=== PATIENT | male | born 1950 | race Caucasian/White ===

== ENCOUNTER 2019-07-10 12:52 | Inpatient (IN) | payer OTHER, MEDICAID ==
[~2019-07-10] VITALS: Ht 180.3 cm; Wt 76.5 kg
--- NOTE | 2019-07-10 12:57 | NUR ---
PT BIB [facility] AM[facility]ULANCE FROM [facility] WITH C/O LEFT LEG PAIN, PER MEDICS WITNESSED FALL OUT OF SI BED LAST NIGHT -LOC, -HEAD INJURY/TRAUMA, PER MEDICS PT HAS HX ARTHRITIS, DEMENTIA, AND HEMIPLEGIA, PER MEDICS "PT IS ACTING HIS NORMAL" AND HAS A G-TUBE IN PLACE, UPON ARRIVAL PT AAOX2 (NOT ORIENTED TO TIME AND/OR SITUATION) HOWEVER PER MEDICS "THAT IS HIS NORMAL", RESPS E/U, PT BROUGHT IN ON 2L O2 NC, O2 REMOVED AND PT SPO2 94% VIA RA, PT PLACED BACK ON O2 2L NC FOR COMFORT, PT HAS G-TUBE NOTED TO RUQ CLEAN INTACT NO REDNESS NOTED, SKIN INTACT, NO DEFORMITIES AND/OR SWELLING NOTED, PER PT "HURTS MORE AT THE TOP OF MY LEFT LEG" TENDERNESS UPON PALPATION NOTED, PT GOWNED AND PLACED ON FULL CM, NSR, AWAITING MSE
--- NOTE | 2019-07-10 12:58 | NUR ---
RUE DEFICITS NOTED TO HX CVA
--- NOTE | 2019-07-10 13:00 | NUR ---
CLEAN, DRY DRESSING NOTED TO RIGHT FOOT OYSTER SHIPPER
--- NOTE | 2019-07-10 13:15 | NUR ---
DR BAHENA AT BEDSIDE FOR MSE.
[2019-07-10 14:09] LABS: CALCIUM 8.9 mg/dL (8.5-10.1); CARBON DIOXIDE 31.9 mmol/L (21-32); CHLORIDE SERUM 96 mmol/L (98-107); CREATININE SERUM 0.9 mg/dL (0.7-1.3); GFR1 > 60 mL/min; GLUCOSE SERUM 154 mg/dL (74-106); POTASSIUM SERUM 4.8 mmol/L (3.5-5.1); SODIUM SERUM 132 mmol/L (136-145)
[2019-07-10 14:11] LABS: BASOPHIL % 0.3 % (0-2); PLATELET COUNT 372 x10^3mcL (130-400)
[2019-07-10 14:15] LABS: RED CELL DISTRIBUTION WIDTH 14.9 % (11.5-14.5)
--- NOTE | 2019-07-10 14:24 | NUR ---
PT BACK FROM XRAY IN STABLE CONDITION
--- NOTE | 2019-07-10 15:44 | NUR ---
PT ASLEEP BUT AROUSABLE IN POSITION OF COMFORT, RESPS E/U, VSS, NSR ON CM, WILL CONTINUE TO MONITOR
--- NOTE | 2019-07-10 15:49 | NUR ---
CORRECTION, G-TUBE LOCATED IN MID ABD REGION
[2019-07-10] MEDS ORDERED: XARELTO10 M1 GT (15:56)
[2019-07-10] MEDS ORDERED: LIPI10 PO (15:58)
[2019-07-10] MEDS ORDERED: VALPROIC A250 MG/51 GT (15:58)
[2019-07-10] MEDS ORDERED: DULCOLAX STOOL100 MG GT (15:59)
[2019-07-10] MEDS ORDERED: NOR10T PO (16:00)
[2019-07-10] MEDS ORDERED: ACETAMINOP650 MG/20. GT (16:00)
[2019-07-10] MEDS ORDERED: PEPCID20 MG GT (16:01)
[2019-07-10] MEDS ORDERED: C500500 MG GT (16:01)
[2019-07-10] MEDS ORDERED: NOR5 PO (16:01)
[2019-07-10] MEDS ORDERED: NAMENDA10 M2 GT ×2 (16:02→17:35)
[2019-07-10] MEDS ORDERED: POLYETHYLE17 GM/Dos4 (16:02)
[2019-07-10] MEDS ORDERED: ACIDOPHILUS LA1 EAC1 GT (16:03)
[2019-07-10] MEDS ORDERED: STOOL SOFTENER250 M2 GT (16:04)
[2019-07-10] MEDS ORDERED: FENOFIBRATE145 M1 GT (16:05)
[2019-07-10] MEDS ORDERED: ATENOLOL25 MG GT (16:05)
[2019-07-10] MEDS ORDERED: DIGOXIN0.125 M1 GT (16:06)
--- NOTE | 2019-07-10 16:50 | NUR ---
PT REQUESTING PAIN MEDICATION 07/20 PAIN, MD STEWART MADE AWARE
[2019-07-10 17:11] LABS: T3 TOTAL 0.96 ng/mL
[2019-07-10 17:15] LABS: FREE T4 1.12 ng/dL (0.76-1.46); T4(THYROXINE) 8.1 ug/dL (4.7-13.3)
--- NOTE | 2019-07-10 17:23 | NUR ---
PT REQUESTING PAIN MEDICATION 07/20 PAIN, MD STEWART MADE AWARE
[2019-07-10 17:29] LABS: MAGNESIUM 1.9 mg/dL (1.8-2.4); PHOSPHOROUS 2.9 mg/dL (2.5-4.9)
[2019-07-10 17:32] LABS: CHOLESTEROL/HDL RATIO 3.5
--- NOTE | 2019-07-10 17:35 | NUR ---
REPORT GIVEN TO HANS GIANG WHO IS RESUMING CARE OF PT AT THIS TIME
--- NOTE | 2019-07-10 17:36 | NUR ---
CORRECTION, LEFT FOOT
--- NOTE | 2019-07-10 18:21 | NUR ---
PT IS AAOX2 TO PERSON AND PLACE. FOLLOWS SOME COMMANDS. CAN VERBALIZE SOME NEEDS. TELE [address] READ[address] NSR WITH [address] DEPRESSION. PT HAS LARM NON-PITTING EDEMA. LUNG SOUNDS DIMINISHED BILATERALLY. ON 02 N/C AT 2 LPM. PT HAS L FOOT WOUND 3X2CM AND L FOOT WOUND. RECEIVED ORDER FROM DR. PARKER FOR WOUND CARE CONSULT AND WOUND CARE ORDERS. ORDERS NOTED AND CARRIED OUT. IVF RUNNING TO LAC, SITE WNL. ABDOMEN SOFT, NONTENDER WITH GTUBE PLACED. SITE WNL. COVERED WITH GAUZE 4X4. PT DENIES PAIN AT THIS TIME. CALL LIGHT WITHIN REACH. BED IN LOWEST POSTION. BED ALARM ON. FALL PROTOCOL IN PLACE. WILL ENDORSE ALL CARE TO NOC RN.
[2019-07-10 18:22] VITALS: BP 155/58
--- NOTE | 2019-07-10 18:37 | NUR ---
RECEIVED FROM ER, TRANSPORTED VIA [facility]. AWAKE, ALERT, ABLE TO STATE NAME AND . SHOUTED OUT IN PAIN WHEN MOVED, STATED "I HURT ALL OVER" WHEN ASKED WHERE PAIN WAS. BECAME CALM WHEN PAIN FREE WHEN NOT MOVED. RIGHT SIDED HEMIPLEGIA. CONTRACTED RIGHT HAND. LEFT FOOT DROP. FULL AND ACTIVE ROM LEFT UPPER EXTREMITY. SEE ADMISSION SKIN PROBLEM FOR SKIN PROBLEMS. SKIN ALTERATIONS PHOTODOCUMENTED. G TUBE TO LEFT UPPER ABDOMEN. BREATHING EVEN AND UNLABORED ON 2LPM OF O2 VIA NC. LUNG SOUNDS DIMINISHED. HOB ELEVATED 30 DEG. SALINE LOCK TO LEFT AC. NON-PITTING EDEMA TO LEFT ARM. INSTRUCTED ON USE OF CALL LIGHT TO CALL FOR ASSISTANCE, PLACED WITHIN EASY REACH. ENDORSED TO NURSE JORGE.
--- NOTE | 2019-07-10 19:10 | NUR ---
RECEIVED PT LAYING IN BED, NO ACUTE DISTRESS OBSERVED, DENIES PAIN OR DISCOMFORT AT THIS TIME. AA/OX1, TO SELF ONLY, SPEECH GARBLED, ABLE TO MAKE NEEDS KNOWN, HX OF CVA. NSR WITH DEPRESSED ST TO TELE #2, DENIES CP. WEAK PEDAL PULSES, NONPITTING EDEMA TO LUE. BREATHING ON 1LNC, EVEN AND UNLABORED, NO SOB OR DYSPNEA OBSERVED, LUNGS CTA, O2 SAT 96% ABD ROUND AND SOFT WITH ACTIVE BOWEL SOUNDS, PEG TUBE TO LUQ IN PLACE, NO N/V/D. VOIDS URINE, INCONTINENT OF STOOL AND URINE, WILL PROVIDE PERICARE NEEDED. PT IS NONAMBULATORY, TURN AND REPOSITION Q2H, L FOOT DROP, R HAND CONTRACTURE. NONBLANCHABLE REDNESS TO BUTTOCKS, HARRY. TOP OF L FOOT WITH SKIN TEAR AND CIRCULAR OPEN TEAR, DYNAMICIST. DARK DISCOLORATION TO R HIP, DYNAMICIST. IV TO LAC IN PLACE, DRY, PATENT, INTACT, AND INFUSING IVF WELL, NO S&S PHLEBITIS OR INFILTRATION NOTED. COMFORT AND SAFETY MEASURES IN PLACE. BED IN LOWEST POSITION WITH SIDE RAILS UPX2 AND BED ALARN ACTIVATED. CALL LIGHT WITHIN REACH. WILL CONTINUE TO MONITOR
[2019-07-10 19:29] VITALS: BP 127/64
--- NOTE | 2019-07-10 22:12 | NUR ---
TF OF JEVITY 1.2 INITIATED ORDERED VIA PEG TUBE TO LUQ, INFUSING AT 30 ML/HR INITIAL RATE WITH 100 ML FWF Q6H. WILL ADVANCE TOLERATED TO GOAL OF 70 ML/HR
--- NOTE | 2019-07-10 23:16 | NUR ---
MADE DR. PELAEZ AWARE OF PT'S US CAROTID RESULTS.
[2019-07-11 00:14] LABS: microscopic required? YES; urine erythrocyte NEGATIVE (NEGATIVE)
[2019-07-11 00:30] LABS: AMPHETAMINE QUAL UR NONE DETECTED (See below)
--- NOTE | 2019-07-11 01:00 | NUR ---
DR. PELAEZ MADE AWARE OF PT'S UA RESULT
--- NOTE | 2019-07-11 02:00 | NUR ---
GASTRIC RESIDUALS 10ML, REPLACED. TF ADVANCED TO 40 ML/HR TOLERATED PER ORDERS. FWF REMAINS AT 100 ML FWF Q6H.
[2019-07-11 04:10] VITALS: BP 125/50
--- NOTE | 2019-07-11 05:31 | NUR ---
GASTRIC RESIDUALS ZERO. TUBE FEEDING ADVANCED ORDERED, PT TOLERATING TF WELL. NOW INFUSING AT 50 ML/HR WITH 100 ML FWF Q6H.
--- NOTE | 2019-07-11 06:16 | NUR ---
PT REFUSED AM LAB DRAW. PT EDUCATED ON NEED AND IMPORTANCE OF LAB DRAWS, PT STILL REFUSED AT THIS TIME. DR. PELAEZ MADE AWARE
--- NOTE | 2019-07-11 06:45 | NUR ---
NO SIGNIFICANT CHANGES TO REPORT, PT RESISTIVE TO CARE AT TIMES. NO ACUTE EVENTS OVERNIGHT. COMFORT AND SAFETY MEASURES MAINTAINED. NO ACUTE DISTRESS OBSERVED AT THIS TIME, PT LAYING IN BED BREATHING EVEN AND UNLABORED. CALL LIGHT WITHIN REACH. WILL CONTINUE TO MONITOR AND ENDORSE CARE TO DAY SHIFT NURSE
--- NOTE | 2019-07-11 07:10 | NUR ---
RECEIVED REPORT FROM AIDAN RN AT BEDSIDE, PT IN BED IN NO ACUTE DISTRESS
--- NOTE | 2019-07-11 07:16 | NUR ---
PT IN BED, AXOX1, GARBLED SPEECH, ABLE TO MAKE BASIC NEEDS KNOWN, CALM AT THIS TIME, PERRLA, NO REDNESS/DRAINAGE, NO FACIAL DROOP/SLURRED SPEECH, RESP EVEN, 1L/MIN, NC, 92%, LUNGS CTA, TELE #2, NSR C DEPRESSED ST, DENIED CP/PALPITATION/FAITH, DENIED N/V/D, ABD ROUND AND NON-TENDER TO TOUCH, HYPOACTIVE X 4, PEG TUBE RUQ PATENT AND INFUSING WELL, JEVITY 1.2 AT 50ML/HR, GOAL 75ML/HR, NO RESIDUAL AT THIS TIME, INCONTINENT, BEDREST, IV PATENT AND INFUSING WELL, DRESSING CDI, SEE SKIN ASSESSMENT, SKIN C/D/W, PALP PULSES, WEAK PULSES BLE, SCDs, CAP REFILL < 3S, TURN Q2H, (R) SIDED WEAKNESS, TLINGIT & HAIDA ELEVATED DURING FEEDING, ASPIRATION PRECAUTION, ALL NEEDS ADDRESSED AT THIS TIME, SAFETY PROTOCOL FOLLOWED, CONTINUE TO MONITOR
[2019-07-11 08:59] VITALS: BP 119/44
--- NOTE | 2019-07-11 09:37 | NUR ---
AM MED GIVEN PER MD ORDER VIA EMAR, TOLERATED WELL, EDUCATION R/T MED, ASE AND MONITOR GIVEN TO PT, ALL NEEDS ADDRESSED AT THIS TIME, CONTINUE TO MONITOR
--- NOTE | 2019-07-11 10:32 | NUR ---
ADVANCED GT FEEDING TO 60ML/HR PER HOSPITAL POLICY, JEVILY 1.2, WFF 100ML/Q6H, NO RESIDUAL AT THIS TIME, TOLERATED WELL, PT MADE AWARE, ASPIRATION PRECAUTION FOLLOWED, HOB ELEVATED, PT IN BED IN NO ACUTE DISTRESS, CONTINUE TO MONITOR
--- NOTE | 2019-07-11 12:48 | NUR ---
PT HAD ECHO CARDIOGRAM DONE AT BEDSIDE, PEG TUBE FEEDING ON HOLD FOR ASPITATION PRECAUTION D/T PT REQUIRED TO LIE FLAT DURING PROCEDURE, PT MADE AWARE, PT IN BED IN NO ACUTE DISTRESS, CONTINUE TO MONITOR
--- NOTE | 2019-07-11 13:13 | NUR ---
ECHO DONE, RESUMED PEG TUBE FEEDING, PEG TUBE PLACEMENT AND RESIDUAL CHECKED, NOTED 20CC, PT IN BED IN NO ACUTE DISTRESS
[2019-07-11 13:17] VITALS: BP 141/50
--- NOTE | 2019-07-11 14:14 | NUR ---
ADVANCED GT FEEDING TO 70ML/HR PER HOSPITAL POLICY, JEVILY 1.2, WFF 100ML/Q6H, NO RESIDUAL AT THIS TIME, TOLERATED WELL, PT MADE AWARE, ASPIRATION PRECAUTION FOLLOWED, HOB ELEVATED, PT IN BED IN NO ACUTE DISTRESS, CONTINUE TO MONITOR
--- NOTE | 2019-07-11 14:45 | NUR ---
SEEN BY WOUND NURSE AMY RN, SKIN ASSESSMENT DONE, DRESSING CHANGED, TURNED Q2H, TOLERATED WELL, CONTINUE TO MONITOR
[2019-07-11 16:26] VITALS: BP 141/58
--- NOTE | 2019-07-11 17:44 | NUR ---
WOUND CARE EVALUATION NOTE: REASON FOR EVALUATION: MULTIPLE WOUNDS SKIN ASSESSMENT DONE ON THIS 68 Y/O MALE PT ADMITTED WITH MULTIPLE SKIN TEARS FROM S/P FALL SKIN WARM AND DRY, CONTRACTURE TO RIGHT /LEFT UPPER AND LOWER EXTREMITIES, , RIGHT HAND FINGERS UNABLE TO EXTEND. STIFFNESS TO BLE. NO HAIR GROWTH TO BLE. DORSAL PEDAL PULSES PRESENT AND NORMAL. BLANCHABLE TO BILATERAL HEELS WITH THIN CALLUS. PLAN OF CARE DISCUSSED WITH PRIMARY RN. INTEGUMENTARY: -RIGHT AND LEFT TOES WITH MULTIPLE ABRASIONS LARGEST TO RIGHT 2ND DIGIT TOE 0.5X0.5CM -RIGHT FLANK EXTEND TO RIGHT HIP 15X10 CM, SKIN INTACT WITH REDNESS FRICTION MIKE AND SURROUNDING SKIN IN LIGHT PURPLE COLOR -RIGHT AND LEFT INNER BUTTOCK BLANCHANLE REDNESS WITH A LINER SHAPE SKIN TEAR TO LEFT INNR BUTTOCK 1.5CM DRY AND CLEAN. -LEFT DORSAL FOOT TWO SKIN TEARS WITH LARGEST 3X2.5CM AND 1X0.7CM, BOTH ARE SUPERFICIAL DEPTH, WOUND BEDS ARE MOIST AND CLEANNO S/S OF INFECTION -SACRALCOCCYX AND BILATERAL HEELS BLANCHABLE REDNESS RECOMMENDATIONS: -PAINT MULTIPLE ABRASION TO TOES BID AND HARRY -APPLY HYDRAGUARD TORIGHT FLANK, RIGHT AND LEFT INNER BUTTOCK BID AND HARRY -CLEANSE SKIN TEARS TO LEFT DORSAL FOOT WITH NS, PAT DRY, APPLY VESATEL DRESSING AND COVER WITH ISLAND DRESSING AND CHANGE DRESSING ON WEDNESDAY, WEDNESDAY AND PRN IF SOILING -HEEL PROTECTORS BILATERAL HEELS -TURN AND REPOSITION PATIENT Q 2H -ASSESS AND MONITOR SKIN CONDITION DURING POSITION CHANGE -OFFLOAD BILATERAL HEELS BY PLACING PILLOWS UNDER CALVES AT ALL TIMES, UNLESS OTHERWISE CONTRAINDICATED -PRESSURE REDISTRIBUTION SURFACE THERAPY -KEEP SKIN CLEAN AND DRY AT ALL TIMES ALL ABOVE RECOMMENDATIONS DISCUSSED WITH PRIMARY RN
--- NOTE | 2019-07-11 18:04 | NUR ---
PT SLEEPING IN BED, IN NO ACUTE DISTRESS, RESP EVEN, NO SOB/COUGH, TELE, CHEST RISE SYMMETRICALLY, NO FACIAL DROOP, IV PATENT AND INFUSING WELL, PEG TUBE INFUSING WELL AT RATE 75ML/HR AFTER ADVANCED RATE PER HOSPIATL POLICY, SKIN C/D/W, ALL NEEDS ADDRESSED AT THIS TIME, TURN Q2H, SAFETY PROTOCOL FOLLOWED, ASPIRATION PRECAUTION MONITOR, WILL ENDORSE TO ONCOMING RN
--- NOTE | 2019-07-11 19:30 | NUR ---
RECEIVED PT LAYING IN BED, NO ACUTE DISTRESS OBSERVED, DENIES PAIN OR DISCOMFORT AT THIS TIME. AA/OX1, TO SELF ONLY, SPEECH GARBLED, ABLE TO MAKE NEEDS KNOWN, HX OF CVA. NSR WITH DEPRESSED ST TO TELE #2, DENIES CP. WEAK PEDAL PULSES, NONPITTING EDEMA TO LUE. BREATHING ON 1LNC, EVEN AND UNLABORED, NO SOB OR DYSPNEA OBSERVED, LUNGS CTA, O2 SAT 95% ABD ROUND AND SOFT WITH ACTIVE BOWEL SOUNDS, PEG TUBE TO LUQ IN PLACE, NO N/V/D. TF OF JEVITY 1.2 INFUSING AT GOAL OF 75 ML/HR WITH 100 ML FWF Q6H, ZERO RESIDUALS, PT TOLERATING TF WELL. VOIDS URINE, INCONTINENT OF STOOL AND URINE, WILL PROVIDE PERICARE NEEDED. PT IS NONAMBULATORY, TURN AND REPOSITION Q2H, L FOOT DROP, R HAND CONTRACTURE. NONBLANCHABLE REDNESS TO BUTTOCKS, Z GAURD AND OPTIFOAM IN PLACE, CDI. TOP OF L FOOT WITH SKIN TEAR AND CIRCULAR OPEN TEAR, NONADHERENT DRESSING IN PLACE, CDI. DARK DISCOLORATION TO R HIP, PESTICIDE CHEMIST. IV TO LAC IN PLACE, DRY, PATENT, INTACT, AND INFUSING IVF WELL, NO S&S PHLEBITIS OR INFILTRATION NOTED. COMFORT AND SAFETY MEASURES IN PLACE. BED IN LOWEST POSITION WITH SIDE RAILS UPX2 AND BED ALARN ACTIVATED. CALL LIGHT WITHIN REACH. WILL CONTINUE TO MONITOR
[2019-07-11 20:14] VITALS: BP 133/62
[2019-07-12 05:46] VITALS: BP 146/55
--- NOTE | 2019-07-12 05:48 | NUR ---
PT REFUSED AM LAB DRAW THIS MORNING. PT EDUCATED FOR NEED AND IMPORTANCE OF LAB DRAW, PT STILL REGFUSED. DR. MARTINEZ MADE AWARE.
--- NOTE | 2019-07-12 05:57 | NUR ---
NO SIGNIFICANT CHANGES TO REPORT. NO ACUTE EVENTS OVERNIGHT. PT TOLERATING TF WELL, REMAINS INFUSING JEVITY 1.2 AT GOAL RATE OF 75 ML/HR WITH 100 ML FWF Q6H, ZERO RESIDUALS NOTED THIS MORNING. COMFORT AND SAFETY MEASURES MAINTAINED. NO ACUTE DISTRESS OBSERVED AT THIS TIME, PT LAYING IN BED BREATHING EVEN AND UNLABORED. CALL LIGHT WITHIN REACH. WILL CONTINUE TO MONITOR AND ENDORSE CARE TO DAY SHIFT NURSE
--- NOTE | 2019-07-12 08:00 | NUR ---
SHIFT ASSESSMENT DONE. PATIENT ALERT/ORIENTED TO PERSON. ABLE TO MADE NEEDS KNOWN. HX OF CVA W/ RT HEMIPLEGIA. APHEGIC. ON G TUBE FEEDING, JEVITY 1.2 75CC/HR AND WATER FLUSH 100CC/Q6H. RESIDUAL CHECK = 0. TOLERATED WELL. NO RESP DISTRESS ON RA. O2 SAT 95%. URINE INCONT. REDNESS TO BUTTOCK SUBSIDED. DARK RED SKIN DISCOLORATION RT HIP AREA WITH SMALL SKIN TEAT. NO DRAIANGE. HARRY. OPEND WOUND TO L FOOT W/ DRSG INTACT. RT HAND CONTRACTURE. RASHEEDA FEET DROPPED. TOTAL CARE NEEDED. PATIENT NO C/O PAIN ON RESTING IN BED. BUT YELLING AND C/O WHOLE BODY PAIN WHEN REPOSITION PATIENT. CALL [facility] IN REACH.
[2019-07-12 09:03] VITALS: BP 134/44
--- NOTE | 2019-07-12 09:34 | NUR ---
PATIENT WAS YELLING AND C/O WHOLE BODY PAIN ON 07/20; NORCO 10/ VIA GT GIVEN FOR REPOSITON AND URINE PAD CHANGE. CONTINUE MONITOR.
--- NOTE | 2019-07-12 10:17 | NUR ---
[facility] REPORTED PATIENT'S NARES CULTURE (+) MRSA. DR. MARTINEZ NOTIFIED. CONTACT ISOLATION PER PROTOCOL.
[2019-07-12 11:52] VITALS: BP 137/63
[2019-07-12 13:37] VITALS: Ht 180.3 cm; Wt 76.5 kg
--- NOTE | 2019-07-12 14:07 | NUR ---
DRSG TO L FOOT CHANGED. 2 SKIN LESIONS TO L FOOT. TOP SKIN TEAR 1.0 X 0.8 (CM) AND BOTTUM HEALING WOUND 2.5 X 3.0 (CM). COVERD WITH UNSTIKE DRSG AND APPLIED ISLAND DRSG. ELEVATED LLE WITH PILLOW.
[2019-07-12 16:27] VITALS: BP 130/60
--- NOTE | 2019-07-12 18:31 | NUR ---
NO C/O PAIN ON RESTING IN BED. BUT YELLING AND C/O SEVERE WHOLE BODY PAIN WHEN TURN PATIENT. URINE INCONT. CHANGED X3, APROX URINE OUTPUT 900 CC. NO BM THIS SHIFT. TF 75CC/HR W/ WATER FLUSH 100CC/Q4H. TOLERATED WELL. IVF OF NS 50CC/HR PER ORDER. ENDORSED CARE TO NOC NURSE.
--- NOTE | 2019-07-12 19:05 | NUR ---
REPORT RECEVIED FROM DAY SHIFT RN. PATIENT WAS SEEN RESTING COMFORTABLE IN BED. A/OX1, CONFUSED, BUT ABLE TO MAKE NEEDS KNOWN. SLOW AND GARBLED SPEECH NOTED. NO DISTRESS NOTED. BREATHING EVEN AND UNLABORED ON ROOM AIR. NO SOB OR RESP DISTRESS NOTED. DENIES CHEST PAIN/PRESSURE. NO C/O PAIN. IV TO THE LAC INFUSING WELL. PATENT AND INTACT. NO REDNESS OR SWELLING NOTED. RIGHT HAND CONTRATURE AND LEFT FOOT DROP NOTED. PEG TUBE TO LUQ W/ CONTINUOUS TUBE FEEDING JEVITY 1.2 AT 75ML/HR AND FWF 100ML Q6H. CONTACT PRECAUTIONS IN PLACE FOR +MRSA IN NARES. COMFORT AND SAFETY MEASURES IN PLACE. HOB ELEVATED. BED IS LOCKED AND IN THE LOWEST POSITION. SIDE RAILS UP X2. CALL LIGHT IS WITHIN REACH. WILL CONTINUE TO MONITOR.
[2019-07-12 20:05] VITALS: BP 150/63
--- NOTE | 2019-07-12 21:01 | NUR ---
IN TO GIVE SCHEDULED MEDS. 0 ML OF RESIDUALS NOTED. TOLERATING TUBE FEEDING WELL. TUBE FEEDING AT 75ML/HR. NO DISTRESS NOTED. IVF INFUSING WELL. SAFETY MEASURES IN PLACE. CALL LIGHT IS WITHIN REACH. WILL CONTINUE TO MONITOR.
--- NOTE | 2019-07-12 23:43 | NUR ---
C/O GENERALIZED BODY PAIN 07/20. PRN NORCO ADMINISTERED THROUGH GTUBE. RESIDUALS CHECKED BEFORE. 0ML OF RESIDUALS NOTED. TUBE FEEDING CHANGED. FORMULA JEVITY 1.2 AT 75ML/HR WITH FWF 100ML Q6H. TOLERATING WELL. NO DISTRESS NOTED. IVF INFUSING WELL. SAFETY MEASURES IN PLACE. CALL LIGHT IS WITHIN REACH. WILL CONTINUE TO MONITOR.
--- NOTE | 2019-07-13 01:01 | NUR ---
TELE MONITOR REPORTED HR IS AT 48. LOWEST WENT DOWN TO 35. IN TO CHECK ON PATIENT AND PATIENT IS ASLEEP. EASILY AROUSABLE BY VERBAL STIMULI. DENIES CHEST PAIN/PRESSURE. NO C/O PAIN OR SOB. BREATHING EVEN AND UNLABORED ON ROOM AIR. NO DISTRESS NOTED. SAFETY MEASURES IN PLACE. CALL LIGHT IS WITHIN REACH. WILL CONTINUE TO MONITOR.
--- NOTE | 2019-07-13 02:14 | NUR ---
RESTING IN BED WITH EYES CLOSED. NO DISTRESS NOTED. NO S/S OF PAIN NOTED. BREATHING EVEN AND UNLABORED ON ROOM AIR. NO SOB OR RESP DISTRESS NOTED. IVF INFUSING WELL. TUBE FEEDING INFUSING WELL. SAFETY MEASURES IN PLACE. CALL LIGHT IS WITHIN REACH. WILL CONTINUE TO MONITOR.
[2019-07-13 05:41] VITALS: BP 136/58
--- NOTE | 2019-07-13 06:04 | NUR ---
RESTED IN LONG INTERVALS THROUGHOUT THE NIGHT. NO ACUTE CHANGES NOTED. NO DISTRESS NOTED. A/OX1 TO SELF; CONFUSED. BREATHING EVEN AND UNLABORED ON ROOM AIR. NO SOB NOTED. IVF INFUSING WELL. PATENT AND INTACT. TUBE FEEDING TOELRATED WELL AT 75ML/HR W/ FWF 100ML Q6H. 0ML RESIUDALS NOTED. C/O PAIN X1 MEDICATED WITH PRN NORCO W/ GOOD RELIEF. ALL NEEDS AND CONCERNS ADDRESSED. SAFETY MEASURES IN PLACE. CALL LIGHT IS WITHIN REACH. WILL ENDORSE CARE TO DAY SHIFT RN
--- NOTE | 2019-07-13 08:00 | NUR ---
SHIFT ASSESSMENT DONE. PATIENT ALERT AND DISORIENTED. HX OF CVA WITH RT SIDE HEMIPLEGIA. RT HAND CONTRACTURED. FEET DROPPED. TELE#2; NSR; HR = 65. NO RESP DISTRESS ON RA. O2 SAT 96%. APHGIC. GT FEEDING WITH JEVITY 1.2 75CC/HR WITH WATER FLUSH 100CC/Q4H. RESIDUAL 20CC, REPLACE. ABD SOFT. BOWEL SOUND ACTIVE. URINE INCONT. SKIN INTACT TO BUTTOCK AREA. SKIN TEAR TO L FOOT. SKIN DISCOLORATION WITH SMALL SKIN TEAR TO RT HIP AREA. NO C/O PAIN ON RESTING IN BED. BUT YELLING AND C/O WHOLE BODY PAIN ON REPOSITION AND CARE. IVF OF NS TO LAC, 50CC/HR. IV PATENT. EDEMA TO LUE NOTED. CONTACT ISOLAION FOR MRSA (+) NARES. CALL LIGHT IN REACH.
[2019-07-13 09:01] VITALS: BP 151/59
[2019-07-13 12:30] VITALS: BP 149/60
[2019-07-13] MEDS ORDERED: LEVAQUIN750 MG PEG (13:19)
[2019-07-13 14:50] VITALS: BP 149/60
--- NOTE | 2019-07-13 15:45 | NUR ---
REPORT GIVEN TO JUAN RAMON AT [facility]. ALL QUESTIONS ANSWERED. ATTENDING NURSE RAPHAEL MADE AWARE.
--- NOTE | 2019-07-13 16:20 | NUR ---
D/C AND TRANSFERED BACK TO [facility] VIA [facility] BLS. IV D/C'D. OVER NEEDLE CATH INTACT. NGT CLAMPED. SKIN CARE AND DRSG CHANGED. PHOTO TAKEN AND FILED.
== END 2019-07-13 16:30 | DRG 564 ==
LOC: ED 12:52 → DU 16:04 → EDBEDREQ 16:07 → DU 18:00
PROVIDERS: Emergency Medicine; ADMIT General Practice
DX: M85.872 Other specified disorders of bone density and structure, left ankle and foot (principal); G93.41 Metabolic encephalopathy; N39.0 Urinary tract infection, site not specified; I69.351 Hemiplegia and hemiparesis following cerebral infarction affecting right dominant side; E87.1 Hypo-osmolality and hyponatremia; F03.90 Unspecified dementia, unspecified severity, without behavioral disturbance, psychotic disturbance, mood disturbance, and anxiety; I48.0 Paroxysmal atrial fibrillation; I25.89 Other forms of chronic ischemic heart disease; K21.9 Gastro-esophageal reflux disease without esophagitis; E11.9 Type 2 diabetes mellitus without complications; I10 Essential (primary) hypertension; E78.5 Hyperlipidemia, unspecified; I69.391 Dysphagia following cerebral infarction; R13.10 Dysphagia, unspecified; Z93.1 Gastrostomy status; Z95.0 Presence of cardiac pacemaker; Z68.23 Body mass index [BMI] 23.0-23.9, adult
CPT/HCPCS: 83880; 84439; G0378; J0696; J1885; J2270; J7030; Q0092